=== PATIENT | female | born 1980 | race Two or more races ===

== ENCOUNTER 2018-08-29 10:57 | Outpatient (CLI) | payer OTHER | END 2018-08-29 11:06 | disposition home or self-care (01) | LOC: LAB 10:57 | DX: M25.50 Pain in unspecified joint (principal); A49.3 Mycoplasma infection, unspecified site; R50.9 Fever, unspecified ==

== ENCOUNTER 2024-08-08 10:14 | Emergency (ER) | payer OTHER ==
[~2024-08-08] VITALS: Ht 157.5 cm; Wt 62.6 kg
[2024-08-08 11:52] VITALS: BP 114/78; O2SAT 100
[2024-08-08] MEDS ORDERED: PROTONIX20 MG PO (11:54)
[2024-08-08] MEDS ORDERED: PEPCID AC10 MG PO (11:54)
[2024-08-08] MEDS ORDERED: FAMOTIDINE/PF 20 MG in 0.9 % SODIUM CHLORIDE 8 ML IV PUSH STA (12:12)
[2024-08-08] MEDS ORDERED: SUCRALFATE 1 G TABLET PO ONE (12:15)
[2024-08-08] MEDS ORDERED: FAMOTIDINE/PF 20 MG/2 ML VIAL ONE (12:18)
[2024-08-08 12:44] LABS: BASO % 0.7 % (0.1-1.2); EOS # 0.19 (0.04-0.54); EOS % 1.8 % (0.7-7.0); LYMPH # 2.69 (1.18-3.74); MEAN CORPUSCULAR HEMOGLOBIN 30.3 pg (25.6-32.2); MONO # 0.92 (0.24-0.82); MONO % 8.5 % (4.7-12.5); NEUT # 6.87 (1.56-6.13); NEUT % 63.7 % (34.0-71.1); PLATELET COUNT 333 K/uL (163-369); RED BLOOD COUNT 4.29 M/uL (3.93-5.22); RED CELL DISTRIBUTION WIDTH 12.4 % (11.6-14.4)
[2024-08-08 13:06] LABS: AMYLASE 49 U/L (25-115); LIPASE 41 U/L (13-75)
== END 2024-08-08 16:17 | disposition home or self-care (01) ==
LOC: ER 10:52
PROVIDERS: Emergency Medicine
DX: O99.611 Diseases of the digestive system complicating pregnancy, first trimester (principal); K29.50 Unspecified chronic gastritis without bleeding; K44.9 Diaphragmatic hernia without obstruction or gangrene; K21.9 Gastro-esophageal reflux disease without esophagitis; K31.89 Other diseases of stomach and duodenum; Z3A.00 Weeks of gestation of pregnancy not specified